=== PATIENT | female | born 1950 | race Asian ===

== ENCOUNTER 2016-12-30 05:53 | Day surgery (SDC) | payer OTHER ==
[~2016-12-30] VITALS: Ht 152.4 cm; Wt 44.5 kg
[2016-12-30] MEDS ORDERED: SODIUM CHLORIDE 0.9% 1,000 ML IV ONE ×2 (06:15→06:35)
[2016-12-30] MEDS ORDERED: FentaNYL CITRATE-PF 100 MCG/2 ML VIAL ONE (07:58)
[2016-12-30] MEDS ORDERED: MIDAZOLAM HCL 2 MG/2 ML VIAL ONE (07:58)
[2016-12-30] MEDS ORDERED: MethylPREDNISolone SOD SUCC 125 MG/2 ML VIAL IVP ONE (08:15)
[2016-12-30] MEDS ORDERED: MethylPREDNISolone SOD SUCC 125 MG/2 ML VIAL ONE (09:06)
[2016-12-30] MEDS ORDERED: ALBUTEROL SULFATE 2.5 MG/0.5 ML NEB SOLUTION NEB ONE (12:00)
[2016-12-30] MEDS ORDERED: EPINEPHrine 1:1,000 [1 MG/ML] AMP SQ ONE (12:00)
[2016-12-30] MEDS ORDERED: LIDOCAINE HCL 2% 30 ML JELLY TP ONE (12:00)
[2016-12-30] MEDS ORDERED: BENZOCAINE 20% 50 MCG/SPRAY 57 GM TP ONE (12:00)
[2016-12-30] MEDS ORDERED: LIDOCAINE HCL 4% 50 ML SOLUTION TP ONE (12:00)
[2016-12-30] MEDS ORDERED: OXYGEN THERAPY IH SCH (20:00)
== END 2016-12-30 10:00 | disposition home or self-care (01) ==
LOC: SURGERY 05:53
PROVIDERS: ATTEND Internal Medicine Critical Care Medicine
DX: J38.4 Edema of larynx (principal); B37.0 Candidal stomatitis
CPT/HCPCS: 31623; 31624; 71010; 87015; 87070; 87101; 87205; 87220; J2250; J2930; J3010; J7030; 87147; 88108; 88312; J0171

== ENCOUNTER 2018-03-25 05:53 | Day surgery (SDC) | payer OTHER ==
[~2018-03-25] VITALS: Ht 152.4 cm; Wt 42.7 kg
[~2018-03-25 05:53] MED LIST: SODIUM CHLORIDE 0.9% 1,000 ML IV ONE
[2018-03-25] MEDS ORDERED: LIDOCAINE HCL 2% 30 ML JELLY TP ONE (05:54)
[2018-03-25] MEDS ORDERED: EPINEPHrine 1:1,000 [1 MG/ML] AMP IM ONE (05:54)
[2018-03-25] MEDS ORDERED: LIDOCAINE HCL 4% 50 ML SOLUTION TP ONE (05:54)
[2018-03-25] MEDS ORDERED: BENZOCAINE 20% 50 MCG/SPRAY 57 GM TP ONE (05:54)
[2018-03-25] MEDS ORDERED: AZIT250T9 PO (06:21)
[2018-03-25] MEDS ORDERED: PRED10 PO (06:21)
[2018-03-25] MEDS ORDERED: [UNRECOGNIZED DRUG - CODE] PO (06:21)
[2018-03-25] MEDS ORDERED: ALBU8.5H8 IH (06:22)
[2018-03-25] MEDS ORDERED: SODIUM CHLORIDE 0.9% 1,000 ML IV ONE (07:00)
[2018-03-25] MEDS ORDERED: MIDAZOLAM HCL 2 MG/2 ML VIAL ONE (08:08)
[2018-03-25] MEDS ORDERED: FentaNYL CITRATE-PF 100 MCG/2 ML VIAL ONE (08:09)
[2018-03-25] MEDS ORDERED: MethylPREDNISolone SOD SUCC 125 MG/2 ML VIAL IVP ONE (08:45)
[2018-03-25] MEDS ORDERED: MethylPREDNISolone SOD SUCC 125 MG/2 ML VIAL ONE (08:53)
[2018-03-25] MEDS ORDERED: OXYGEN THERAPY IH SCH (20:00)
== END 2018-03-25 10:25 | disposition home or self-care (01) ==
LOC: SURGERY 05:53
PROVIDERS: ATTEND Internal Medicine Critical Care Medicine
DX: J38.4 Edema of larynx (principal); B37.0 Candidal stomatitis; Z79.2 Long term (current) use of antibiotics; Z98.890 Other specified postprocedural states; Z79.899 Other long term (current) drug therapy
CPT/HCPCS: 31623; 31624; 71045; 87015; 87070; 87205; 87206; 87220; 88108; 88312; J0171; J2250; J2930; J3010; J7030

== ENCOUNTER 2019-02-24 05:52 | Day surgery (SDC) | payer OTHER ==
[~2019-02-24] VITALS: Ht 152.4 cm; Wt 47.3 kg
[~2019-02-24 05:52] MED LIST changes: +ALBU8.5H8 IH; +LACT1CAP72 PO; +MONT10TA21 PO; +OMEG-135 PO
[2019-02-24] MEDS ORDERED: LIDOCAINE 4% 50 ML SOLUTION TP ONE (05:53)
[2019-02-24] MEDS ORDERED: BENZOCAINE 20% 50 MCG/SPRAY 57 GM TP ONE (05:53)
[2019-02-24] MEDS ORDERED: LIDOCAINE 2% 30 ML JELLY TP ONE (05:53)
[2019-02-24] MEDS ORDERED: ALBUTEROL SULFATE 2.5 MG/0.5 ML NEB SOLUTION NEB ONE (05:53)
[2019-02-24] MEDS ORDERED: FAMO20 PO (06:04)
[2019-02-24] MEDS ORDERED: SODIUM CHLORIDE 0.9% 1,000 ML IV ONE (06:30)
[2019-02-24] MEDS: SODIUM CHLORIDE 0.9% 1,000 ML IV ONE (06:48)
[2019-02-24] MEDS ORDERED: MIDAZOLAM HCL 2 MG/2 ML VIAL ONE (08:08)
[2019-02-24] MEDS ORDERED: FentaNYL CITRATE-PF 100 MCG/2 ML VIAL ONE (08:08)
[2019-02-24] MEDS: MethylPREDNISolone SOD SUCC 125 MG/2 ML VIAL IVP ONE (08:55)
[2019-02-24] MEDS ORDERED: OXYGEN THERAPY IH SCH (20:00)
== END 2019-02-24 10:25 | disposition home or self-care (01) ==
LOC: SURGERY 05:52
PROVIDERS: ATTEND Internal Medicine Critical Care Medicine
DX: J38.4 Edema of larynx (principal); B37.0 Candidal stomatitis; G47.33 Obstructive sleep apnea (adult) (pediatric); K52.9 Noninfective gastroenteritis and colitis, unspecified
CPT/HCPCS: 31623; 31624; 71045; 87015; 87070; 87101; 87205; 87206; 87220; 88108; 88312; J2250; J2930; J3010; J7030

== ENCOUNTER 2019-10-15 05:53 | Day surgery (SDC) | payer OTHER ==
[~2019-10-15] VITALS: Ht 152.4 cm; Wt 49.5 kg
[~2019-10-15 05:53] MED LIST changes: +BECL10.62 IH; +OMEP20CA12 PO; -SODIUM CHLORIDE 0.9% 1,000 ML IV ONE; +SODIUM CHLORIDE 0.9% 1,000 ML ONE; +SUCR1TAB PO
[2019-10-15] MEDS ORDERED: SODIUM CHLORIDE 0.9% 1,000 ML IV ONE (07:00)
[2019-10-15] MEDS ORDERED: MIDAZOLAM HCL 2 MG/2 ML VIAL ONE (07:31)
[2019-10-15] MEDS ORDERED: FentaNYL CITRATE-PF 100 MCG/2 ML VIAL ONE (07:31)
[2019-10-15] MEDS ORDERED: MethylPREDNISolone SOD SUCC 125 MG/2 ML VIAL IVP ONE (08:30)
[2019-10-15] MEDS ORDERED: MethylPREDNISolone SOD SUCC 125 MG/2 ML VIAL ONE (09:22)
[2019-10-15] MEDS ORDERED: BENZOCAINE 20% 50 MCG/SPRAY 57 GM ONE (15:51)
[2019-10-15] MEDS ORDERED: LIDOCAINE 2% 30 ML JELLY ONE (15:51)
[2019-10-15] MEDS ORDERED: LIDOCAINE 4% 50 ML SOLUTION ONE (15:51)
[2019-10-15] MEDS ORDERED: OXYGEN THERAPY IH SCH (20:00)
== END 2019-10-15 10:35 | disposition home or self-care (01) ==
LOC: SURGERY 05:53
PROVIDERS: ATTEND Internal Medicine Critical Care Medicine
DX: R05 Cough (principal); J47.9 Bronchiectasis, uncomplicated; J34.89 Other specified disorders of nose and nasal sinuses; J98.8 Other specified respiratory disorders; J38.4 Edema of larynx; B37.0 Candidal stomatitis; T17.990A Other foreign object in respiratory tract, part unspecified in causing asphyxiation, initial encounter; X58.XXXA Exposure to other specified factors, initial encounter; Y93.89 Activity, other specified; Y92.89 Other specified places as the place of occurrence of the external cause; Y99.8 Other external cause status
CPT/HCPCS: 31623; 31624; 71045; 87015; 87070; 87101; 87205; 87206; 87220; 88184; 88185; 93005; J2250; J2930; J3010; J7030; 88108; 88312

== ENCOUNTER 2021-03-19 05:37 | Day surgery (SDC) | payer OTHER ==
[2021-03-16 10:19] LABS: COVID AG,FIA SOURCE NASOPHARYNGEAL
[~2021-03-19] VITALS: Ht 152.4 cm; Wt 45.0 kg
[~2021-03-19 05:37] MED LIST changes: -LACT1CAP72 PO; -MONT10TA21 PO; -OMEG-135 PO; -SODIUM CHLORIDE 0.9% 1,000 ML ONE
[2021-03-19] MEDS ORDERED: BENZOCAINE 20% 50 MCG/SPRAY 57 GM TP ONE (05:38)
[2021-03-19] MEDS ORDERED: LIDOCAINE 2% 30 ML JELLY TP ONE (05:38)
[2021-03-19] MEDS ORDERED: ALBUTEROL SULFATE 2.5 MG/0.5 ML NEB SOLUTION NEB ONE (05:38)
[2021-03-19] MEDS ORDERED: SODIUM CHLORIDE 0.9% 1,000 ML ONE (06:33)
[2021-03-19] MEDS ORDERED: OMEP20 PO (06:49)
[2021-03-19] MEDS ORDERED: BENZ-70 PO (06:49)
[2021-03-19] MEDS ORDERED: MONT-35 PO (06:49)
[2021-03-19] MEDS ORDERED: MIDAZOLAM HCL 2 MG/2 ML VIAL ONE (07:47)
[2021-03-19] MEDS ORDERED: FentaNYL CITRATE PF 100 MCG/2 ML VIAL ONE (07:48)
[2021-03-19] MEDS ORDERED: MethylPREDNISolone SOD SUCC 125 MG/2 ML VIAL IVP ONE (09:00)
[2021-03-19] MEDS ORDERED: MethylPREDNISolone SOD SUCC 125 MG/2 ML VIAL ONE (09:08)
[2021-03-19] MEDS ORDERED: SODIUM CHLORIDE 0.9% 1,000 ML IV ONE (09:30)
[2021-03-19] MEDS ORDERED: OXYGEN THERAPY IH SCH (20:00)
== END 2021-03-19 10:15 | disposition home or self-care (01) ==
LOC: SURGERY 05:37
PROVIDERS: ATTEND Internal Medicine Critical Care Medicine
DX: J38.4 Edema of larynx (principal); B37.0 Candidal stomatitis; J45.909 Unspecified asthma, uncomplicated; Z79.899 Other long term (current) drug therapy
CPT/HCPCS: 31623; 31624; 71045; 87015; 87070; 87101; 87205; 87206; 87220; 87426; 88108; 88184; 88185; 88312; C9803; J2250; J2930; J3010; J7030; J7613